=== PATIENT | female | born 1940 | race Caucasian/White ===

== ENCOUNTER 2024-04-13 17:15 | Inpatient (IN) | payer OTHER ==
[~2024-04-13] VITALS: Ht 157.5 cm; Wt 50.8 kg
[~2024-04-13 17:15] MED LIST: ASMANEX0.24 G1 IH; HYZAAR 100/25 T1 TAB PO; LIPITOR20 MG PO; NORVASC10 MG PO
[2024-04-13] MEDS ORDERED: FAMOtidine 10 MG/ML (4ML VIAL) IV ONE (17:45)
[2024-04-13] MEDS ORDERED: KETOROLAC TROMETHAMINE 60 MG VIAL IM ONE (17:45)
[2024-04-13] MEDS ORDERED: MORPHINE SULFATE 4 MG/ML VIAL IV ONE (17:45)
[2024-04-13] MEDS ORDERED: 0.9 % SODIUM CHLORIDE 1,000 ML IV ONE (17:45)
[2024-04-13] MEDS ORDERED: ONDANSETRON HCL 2 MG/ML VIAL IV ONE (17:45)
[2024-04-13] MEDS ORDERED: FAMOTIDINE/PF 20 MG/2 ML VIAL ONE (17:52)
[2024-04-13] MEDS ORDERED: ONDANSETRON HCL 2 MG/ML VIAL ONE (17:52)
[2024-04-13 18:26] LABS: HEMATOCRIT 33.1 % (36.0-45.00); MEAN CORPUSCULAR HEMOGLOBIN 31.6 pg (27.00-32.0); MEAN CORPUSCULAR HGB CONC 33.3 g/dl (32.0-36.0); PLATELET COUNT 304 K/uL (150-450); RED BLOOD COUNT 3.49 M/uL (4.00-6.00)
[2024-04-13 18:48] LABS: INR 0.95; PROTHROMBIN TIME 10.4 SECONDS (9.0-11.5)
[2024-04-13 18:54] LABS: ALBUMIN 3.6 gm/dL (3.4-5.0); BILIRUBIN TOTAL 0.14 mg/dL (0.3-1.2); CALCIUM 9.4 mg/dL (8.5-10.1); CREATININE SERUM 0.89 mg/dL (0.55-1.02); GFR 60.57; GLOBULINA 3.9 G/DL (2.4-3.5); POTASSIUM 4.84 mEq/L (3.5-5.1); TOTAL PROTEIN 7.5 gm/dL (6.4-8.2)
[2024-04-13] MEDS ORDERED: DIPHENHYDRAMINE HCL 50 MG/ML VIAL 1ML IV PRN (20:30)
[2024-04-13] MEDS ORDERED: 0.9 % SODIUM CHLORIDE 1,000 ML IV SCH (20:30)
[2024-04-13] MEDS ORDERED: METHYLPREDNISOLONE SOD SUCC 40 MG VIAL IV PRN (20:30)
[2024-04-13] MEDS ORDERED: FUROsemide 20 MG/2 ML VIAL IV SCH (20:30)
[2024-04-13 20:42] LABS: PH,URINE 5.5 (5.0-8.0); URINE APPEARANCE Clear; URINE BILIRRUBIN Negative (NEGATIVE); URINE BLOOD Negative; URINE COLOR Yellow; URINE GLUCOSE Negative (NEGATIVE); URINE KETONE Negative (NEGATIVE); URINE LEUKOCYTE Negative; URINE NITRATE Negative; URINE UROBILINOGEN 0.2 E.U./dl
[2024-04-13] MEDS ORDERED: ENOXAPARIN SODIUM 40 MG/0.4 ML SYRINGE SUBCUTANEO SCH (20:45)
[2024-04-13] MEDS ORDERED: hydrALAZINE HCL 20 MG VIAL IV PRN (20:45)
[2024-04-13] MEDS ORDERED: ACETAMINOPHEN 500 MG GEL..CAP PO PRN (20:45)
[2024-04-13] MEDS ORDERED: ONDANSETRON HCL 4 MG in 0.9 % SODIUM CHLORIDE 50 ML IV PRN (20:45)
[2024-04-13 20:48] LABS: URINE BACTERIA 28.9 uL (0.0-1933); URINE EPITHELIAL CELLS 3.7 uL (0.0-38.8); URINE RBC 7.3 uL (0.0-20.8); URINE WBC 9.8 uL (0.0-23.2)
[2024-04-13] MEDS ORDERED: LEVALBUTEROL HCL 0.63 MG/3 ML SOLUTION IH ONE (20:55)
[2024-04-13] MEDS ORDERED: LEVALBUTEROL HCL 1.25 MG/3 ML SOLUTION IH SCH (21:00)
[2024-04-13 21:08] LABS: URINE PROTEIN 100 (NEGATIVE)
[2024-04-13 21:15] LABS: ABG PH 7.383 (7.35-7.45); ABG PO2 72.6 mmHg (80-100); ABG pCO2 41.9 mmHg (35-45); BASE EXCESS -0.7 mmol/l; BICARBONATE 24.4 mmol/l (23-25); SaO2 94.1 %; Tco2 25.7 mmol/l; allen test SATISFACTORY; o2 21 %; puncture site RADIAL LEFT
[2024-04-13] MEDS ORDERED: TRAMADOL HCL 50 MG TABLET PO PRN (21:45)
[2024-04-14] MEDS ORDERED: ACETAMINOPHEN 325 MG TABLET PO SCH
[2024-04-14] MEDS ORDERED: MORPHINE SULFATE 4 MG/ML VIAL IV SCH
[2024-04-14 00:31] VITALS: BP 162/70; O2SAT 96
[2024-04-14] MEDS ORDERED: IPRATROPIUM BROMIDE 0.5 MG/2.5 ML AMPUL.NEB IH SCH (01:00)
[2024-04-14] MEDS ORDERED: ACETAMINOPHEN 325 MG TABLET PO ONE (02:07)
[2024-04-14] MEDS ORDERED: LEVALBUTEROL HCL 1.25 MG/3 ML SOLUTION IH ONE (06:10)
[2024-04-14 06:21] LABS: HEMATOCRIT 32.5 % (36.0-45.00); MEAN CELL VOLUME 93.5 fL (80.00-100.00); MEAN CORPUSCULAR HEMOGLOBIN 31.7 pg (27.00-32.0); MEAN CORPUSCULAR HGB CONC 33.9 g/dl (32.0-36.0); PLATELET COUNT 301 K/uL (150-450); RED BLOOD COUNT 3.47 M/uL (4.00-6.00); RED CELL DISTRIBUTION WIDTH 13.1 % (11.5-14.5)
[2024-04-14 06:23] LABS: PH,URINE 5.5 (5.0-8.0); URINE APPEARANCE Clear; URINE BILIRRUBIN Negative (NEGATIVE); URINE BLOOD Moderate; URINE COLOR Yellow; URINE GLUCOSE Negative (NEGATIVE); URINE KETONE Negative (NEGATIVE); URINE LEUKOCYTE Negative; URINE NITRATE Negative; URINE UROBILINOGEN 0.2 E.U./dl
[2024-04-14 06:26] LABS: URINE BACTERIA 25.1 uL (0.0-1933); URINE EPITHELIAL CELLS 1.5 uL (0.0-38.8); URINE RBC 115.8 uL (0.0-20.8); URINE WBC 6.4 uL (0.0-23.2)
[2024-04-14 06:28] LABS: ERYTHROCYTE SEDIMENTATION RATE 101 mm/hr
[2024-04-14 06:32] LABS: URINE CAST 0.15 uL (0.0-1.40); URINE PROTEIN 100 (NEGATIVE)
[2024-04-14 06:39] LABS: INR 0.98; PARTIAL THROMBOPLASTIN TIME 36.4 SECONDS (22.0-34.0); PROTHROMBIN TIME 10.7 SECONDS (9.0-11.5)
[2024-04-14 06:53] LABS: ALBUMIN 3.2 gm/dL (3.4-5.0); ALKALINE PHOSPHATASE 83 U/L (50-136); ALT/SGPT 14 U/L (12-78); ANION GAP 11 (10.0-20.0); AST/SGOT 17 U/L (15-37); BILIRUBIN,CONJUGATED < 0.10 mg/dL (0.0-0.2); BLOOD UREA NITROGEN 18 mg/dL (7-18); BUN CREA RATIO 23 (7.0-25.0); C-REACTIVE PROTEIN 2.75 MG/DL (0.00-0.29); CALCIUM 8.8 mg/dL (8.5-10.1); CARBON DIOXIDE 27 mEq/L (21-32); CHLORIDE 108 mmol/L (98-107); CHOL HDL RATIO 2.7 (0-5.0); CHOLESTEROL 139 mg/dL (0-200); CREATININE SERUM 0.77 mg/dL (0.55-1.02); GFR 71.59; GLOBULINA 4.4 G/DL (2.4-3.5); GLUCOSE FASTING 106 mg/dL (65-100); HDL 52 mg/dl (40-60); LDL 67 mg/dl (0-130); OSMOLALITY SERUM 285 MOSM/KG (275-295); POTASSIUM 3.77 mEq/L (3.5-5.1); SODIUM 142 mmol/L (136-145); TOTAL PROTEIN 7.6 gm/dL (6.4-8.2); TRIGLYCERIDES 98 mg/dL (0-150); VLDL 19 (0-39)
[2024-04-14 08:08] VITALS: BP 138/63; O2SAT 100
[2024-04-14] MEDS ORDERED: ATORVASTATIN CALCIUM 20 MG TABLET PO SCH (09:00)
[2024-04-14] MEDS ORDERED: AZITHROMYCIN 500 MG in 0.9 % SODIUM CHLORIDE 250 ML IV SCH (09:00)
[2024-04-14] MEDS ORDERED: PANTOPRAZOLE SODIUM 40 MG in 0.9 % SODIUM CHLORIDE 8 ML IV PUSH SCH (09:00)
[2024-04-14] MEDS ORDERED: STIOLTO IH SCH (09:00)
[2024-04-14] MEDS ORDERED: CEFTRIAXONE SODIUM 1,000 MG VIAL IV SCH (09:00)
[2024-04-14] MEDS ORDERED: ENOXAPARIN SODIUM 40 MG/0.4 ML SYRINGE SUBCUTANEO SCH (09:00)
[2024-04-14 09:50] LABS: COL ADP 177 SECONDS (56-102)
[2024-04-14 11:00] VITALS: BP 163/71; O2SAT 100
[2024-04-14] MEDS ORDERED: METHYLPREDNISOLONE SOD SUCC 40 MG VIAL IV SCH (12:38)
[2024-04-14] MEDS ORDERED: CHLORHEXIDINE GLUCONATE 120 ML BOTTLE TOP NR (15:00)
[2024-04-14 16:00] VITALS: BP 191/76; O2SAT 100
[2024-04-14] MEDS ORDERED: MONTELUKAST SODIUM 10 MG TABLET PO SCH (17:00)
[2024-04-14] MEDS ORDERED: REMDESIVIR 100 MG VIAL IV ONE (18:30)
[2024-04-15] VITALS: BP 154/69; O2SAT 95
[2024-04-15 08:00] VITALS: BP 136/60; O2SAT 100
[2024-04-15] MEDS ORDERED: levoFLOXacin 500 MG TABLET PO SCH (09:00)
[2024-04-15 09:49] LABS: ALBUMIN 2.7 gm/dL (3.4-5.0); BILIRUBIN TOTAL 0.19 mg/dL (0.3-1.2); CALCIUM 8.5 mg/dL (8.5-10.1); CREATININE SERUM 0.7 mg/dL (0.55-1.02); GFR 79.91; GLOBULINA 3.4 G/DL (2.4-3.5); POTASSIUM 4.52 mEq/L (3.5-5.1); TOTAL PROTEIN 6.1 gm/dL (6.4-8.2)
[2024-04-15 09:59] LABS: ALBUMIN 2.7 gm/dL (3.4-5.0); BILIRUBIN TOTAL 0.11 mg/dL (0.3-1.2); CALCIUM 8.6 mg/dL (8.5-10.1); CREATININE SERUM 0.71 mg/dL (0.55-1.02); FERRITIN 79.2 NG/ML (8-252); GFR 78.62; GLOBULINA 3.5 G/DL (2.4-3.5); POTASSIUM 4.53 mEq/L (3.5-5.1); TOTAL PROTEIN 6.2 gm/dL (6.4-8.2)
[2024-04-15 10:00] LABS: C-REACTIVE PROTEIN 5.4 MG/DL (0.00-0.29)
[2024-04-15] MEDS ORDERED: REMDESIVIR 100 MG VIAL IV NR (10:00)
[2024-04-15 11:21] LABS: COL ADP 102 SECONDS (56-102); COL EPI 142 SECONDS (82-175)
[2024-04-15 16:53] VITALS: BP 144/67; O2SAT 98
[2024-04-16 00:24] VITALS: BP 157/70; O2SAT 99
[2024-04-16 08:00] VITALS: BP 188/60; O2SAT 100
[2024-04-16] MEDS ORDERED: REMDESIVIR 100 MG VIAL IV SCH (09:00)
[2024-04-16 10:56] LABS: ALBUMIN 2.5 gm/dL (3.4-5.0); BILIRUBIN TOTAL 0.21 mg/dL (0.3-1.2); CREATININE SERUM 0.67 mg/dL (0.55-1.02); GFR 84.06; GLOBULINA 3.4 G/DL (2.4-3.5); POTASSIUM 4.66 mEq/L (3.5-5.1); TOTAL PROTEIN 5.9 gm/dL (6.4-8.2)
[2024-04-16 11:38] VITALS: BP 136/59
[2024-04-16] MEDS ORDERED: TRANEXAMIC ACID 100MG/1ML (1000MG) AMPUL IV ONE ×2 (17:15)
[2024-04-16] MEDS ORDERED: VANCOMYCIN HCL 1,000 MG VIAL IR ONE (17:15)
[2024-04-16] MEDS ORDERED: PANTOPRAZOLE SODIUM 40 MG TABLET.DR PO SCH (18:59)
[2024-04-16] MEDS ORDERED: TRAMADOL HCL 50 MG TABLET PO PRN (19:00)
[2024-04-16] MEDS ORDERED: ONDANSETRON HCL 2 MG/ML VIAL IV PRN (19:00)
[2024-04-16] MEDS ORDERED: ONDANSETRON 4 MG TAB.RAPDIS PO PRN (19:00)
[2024-04-16] MEDS ORDERED: PROMETHAZINE HCL 50 MG/ML AMPUL IM PRN (19:00)
[2024-04-16] MEDS ORDERED: SODIUM CHLORIDE 0.45 % 1,000 ML IV SCH (19:00)
[2024-04-16] MEDS ORDERED: MEPERIDINE HCL/PF 50 MG/ML VIAL IM PRN (19:00)
[2024-04-16 20:29] VITALS: BP 147/75; O2SAT 99
[2024-04-16] MEDS ORDERED: ACETAMINOPHEN 325 MG TABLET PO SCH (21:00)
[2024-04-16] MEDS ORDERED: KETOROLAC TROMETHAMINE 10 MG TABLET PO SCH (21:00)
[2024-04-16] MEDS ORDERED: KETOROLAC TROMETHAMINE 30 MG VIAL ONE (21:22)
[2024-04-17 00:27] VITALS: BP 143/64; O2SAT 97
[2024-04-17] MEDS ORDERED: CEFAZOLIN SODIUM 1,000 MG VIAL IV SCH (01:00)
[2024-04-17 06:50] LABS: HEMATOCRIT 29.7 % (36.0-45.00); MEAN CORPUSCULAR HEMOGLOBIN 31.5 pg (27.00-32.0); MEAN CORPUSCULAR HGB CONC 33.5 g/dl (32.0-36.0); PLATELET COUNT 303 K/uL (150-450); RED BLOOD COUNT 3.16 M/uL (4.00-6.00); RED CELL DISTRIBUTION WIDTH 13.2 % (11.5-14.5)
[2024-04-17 07:48] LABS: ALBUMIN 2.6 gm/dL (3.4-5.0); BILIRUBIN TOTAL 0.15 mg/dL (0.3-1.2); CALCIUM 9.1 mg/dL (8.5-10.1); CREATININE SERUM 0.95 mg/dL (0.55-1.02); GFR 56.18; GLOBULINA 3.4 G/DL (2.4-3.5); POTASSIUM 3.99 mEq/L (3.5-5.1)
[2024-04-17 08:53] VITALS: BP 180/78; O2SAT 95
[2024-04-17] MEDS ORDERED: RIVAROXABAN 10 MG TAB PO SCH (09:00)
[2024-04-17] MEDS ORDERED: LOSARTAN POTASSIUM 25 MG TABLET PO SCH (12:00)
[2024-04-17 17:13] VITALS: BP 150/75; O2SAT 98
[2024-04-18 01:30] VITALS: BP 160/74; O2SAT 98
[2024-04-18 08:00] VITALS: BP 180/85; O2SAT 100
[2024-04-18 09:00] VITALS: BP 95/68; O2SAT 99
[2024-04-18] MEDS ORDERED: SENNA/DOCUSATE SODIUM 1 TAB TABLET PO SCH (09:00)
[2024-04-18 09:01] LABS: MEAN CELL VOLUME 92.1 fL (80.00-100.00); PLATELET COUNT 282 K/uL (150-450); RED BLOOD COUNT 2.72 M/uL (4.00-6.00); RED CELL DISTRIBUTION WIDTH 13.4 % (11.5-14.5)
[2024-04-18 09:09] LABS: MEAN CORPUSCULAR HEMOGLOBIN 31.2 pg (27.00-32.0)
[2024-04-18 09:10] LABS: HEMOGLOBIN 8.5 g/dL (12.0-15.00)
[2024-04-18 16:00] VITALS: BP 122/50; O2SAT 96
[2024-04-19 00:48] VITALS: BP 137/68; O2SAT 99
[2024-04-19 08:00] VITALS: BP 148/72; O2SAT 94
[2024-04-19 11:50] LABS: HEMATOCRIT 33.9 % (36.0-45.00); HEMOGLOBIN 11.7 g/dL (12.0-15.00); MEAN CELL VOLUME 90.5 fL (80.00-100.00); MEAN CORPUSCULAR HEMOGLOBIN 31.1 pg (27.00-32.0); MEAN CORPUSCULAR HGB CONC 34.4 g/dl (32.0-36.0); PLATELET COUNT 331 K/uL (150-450); RED BLOOD COUNT 3.75 M/uL (4.00-6.00); RED CELL DISTRIBUTION WIDTH 14.1 % (11.5-14.5)
== END 2024-04-19 15:02 | DRG 981 ==
LOC: ER 17:15 → SURH 21:05 → SEC-K 04-14 00:38 → SURH 04-14 08:26
PROVIDERS: General Practice; Internal Medicine; Internal Medicine Infectious Disease; Orthopaedic Surgery; ADMIT Internal Medicine; ATTEND Internal Medicine
PROC: BR20ZZZ Computerized Tomography (CT Scan) of Cervical Spine (ICD-10-PCS; 2024-04-13)
PROC: BW28ZZZ Computerized Tomography (CT Scan) of Head (ICD-10-PCS; 2024-04-13)
PROC: XW033E5 Introduction of Remdesivir Anti-infective into Peripheral Vein, Percutaneous Approach, New Technology Group 5 (ICD-10-PCS; 2024-04-16)
PROC: 0SRB0JZ Replacement of Left Hip Joint with Synthetic Substitute, Open Approach (ICD-10-PCS; principal; 2024-04-18)
PROC: 30233N1 Transfusion of Nonautologous Red Blood Cells into Peripheral Vein, Percutaneous Approach (ICD-10-PCS; 2024-04-19)
DX: U07.1 COVID-19 (principal); S72.92XA Unspecified fracture of left femur, initial encounter for closed fracture; W13.3XXA Fall through floor, initial encounter; Y93.9 Activity, unspecified; Y92.9 Unspecified place or not applicable; D64.9 Anemia, unspecified

== ENCOUNTER 2024-05-20 15:53 | Emergency (ER) | payer OTHER ==
[~2024-05-20] VITALS: Ht 152.4 cm; Wt 50.8 kg
[2024-05-20] MEDS ORDERED: CRESTOR40 MG PO (17:19)
[2024-05-20] MEDS ORDERED: ACID REDUCER20 M1 (17:20)
[2024-05-20] MEDS ORDERED: PRILOSEC OTC20 MG (17:20)
[2024-05-20] MEDS ORDERED: SINGULAIR10 MG (17:20)
[2024-05-20] MEDS ORDERED: ADULT LOW DOSE81 M1 (17:21)
== END 2024-05-20 19:04 | disposition home or self-care (01) ==
LOC: ER 15:55
DX: R53.81 Other malaise (principal); M79.672 Pain in left foot; Z88.2 Allergy status to sulfonamides; Z88.5 Allergy status to narcotic agent

== ENCOUNTER 2024-10-16 12:52 | Outpatient (CLI) | payer OTHER ==
[~2024-10-16 12:52] MED LIST changes: +ACID REDUCER20 M1; +ADULT LOW DOSE81 M1; +CRESTOR40 MG PO; +PRILOSEC OTC20 MG; +SINGULAIR10 MG
== END 2024-10-16 13:20 | disposition home or self-care (01) ==
LOC: TOM 12:52
PROVIDERS: ATTEND Orthopaedic Surgery
DX: M21.751 Unequal limb length (acquired), right femur (principal)

== ENCOUNTER 2024-10-28 10:18 | Outpatient (CLI) | payer OTHER ==
[2024-10-28 12:32] LABS: ALBUMIN 3.4 gm/dL (3.4-5.0); BILIRUBIN TOTAL 0.49 mg/dL (0.3-1.2); CALCIUM 9.2 mg/dL (8.5-10.1); CREATININE SERUM 0.67 mg/dL (0.55-1.02); GFR 84.06; GLOBULINA 3.1 G/DL (2.4-3.5); PHOSPHOROUS 2.8 mg/dL (2.5-4.9); POTASSIUM 4.41 mEq/L (3.5-5.1); TOTAL PROTEIN 6.5 gm/dL (6.4-8.2)
== END 2024-10-28 10:38 | disposition home or self-care (01) ==
LOC: LAB 10:18
PROVIDERS: ATTEND Orthopaedic Surgery
DX: M81.8 Other osteoporosis without current pathological fracture (principal); E88.89 Other specified metabolic disorders; E21.3 Hyperparathyroidism, unspecified; E56.1 Deficiency of vitamin K; E55.9 Vitamin D deficiency, unspecified; M85.9 Disorder of bone density and structure, unspecified

== ENCOUNTER 2025-02-01 04:36 | Emergency (ER) | payer OTHER ==
[~2025-02-01] VITALS: Ht 152.4 cm; Wt 51.7 kg
[2025-02-01] MEDS ORDERED: KETOROLAC TROMETHAMINE 60 MG VIAL IM STA (05:29)
[2025-02-01] MEDS ORDERED: ACETAMINOPHEN 500 MG GEL..CAP PO STA (05:30)
[2025-02-01] MEDS ORDERED: ACETAMINOPHEN 500 MG GEL..CAP PO ONE (05:32)
[2025-02-01] MEDS ORDERED: KETOROLAC TROMETHAMINE 60 MG VIAL IM ONE (05:32)
== END 2025-02-01 05:49 | disposition home or self-care (01) ==
LOC: ER 04:36
DX: S70.12XA Contusion of left thigh, initial encounter (principal); W18.39XA Other fall on same level, initial encounter; Y93.89 Activity, other specified; Y92.89 Other specified places as the place of occurrence of the external cause; Z88.2 Allergy status to sulfonamides; Z88.6 Allergy status to analgesic agent
CPT/HCPCS: 73521; 73523; 73551; 96372; 99283; J1885